=== PATIENT | male | born 1990 | race Two or more races ===

== ENCOUNTER 2019-12-16 15:55 | Inpatient (IN) | payer OTHER ==
[~2019-12-16] VITALS: Ht 172.7 cm; Wt 68.0 kg
[~2019-12-16 15:55] MED LIST: PIPERACILLIN SODIUM/TAZOBACTAM 3.375 G in IV DEXTROSE 5% 50 ML IV SCH
[2019-12-16] MEDS ORDERED: IV NORMAL SALINE 1000 ML BAG IV ONE (18:15)
[2019-12-16] MEDS ORDERED: ONDANSETRON 4 MG/2 ML VIAL IV ONE ×2 (18:15→21:45)
[2019-12-16] MEDS ORDERED: FAMOTIDINE. 20 MG/2 ML VIAL IV ONE ×2 (18:15→18:23)
[2019-12-16] MEDS ORDERED: ACET-73 PO (18:17)
[2019-12-16] MEDS ORDERED: ONDA8TAB6 PO (18:17)
[2019-12-16] MEDS ORDERED: DIVA500T2 PO (18:17)
[2019-12-16] MEDS ORDERED: DICY20TA11 PO (18:17)
[2019-12-16] MEDS ORDERED: AZIT250T13 PO (18:17)
[2019-12-16] MEDS ORDERED: ONDANSETRON 4 MG/2 ML VIAL ONE ×2 (18:22→21:44)
[2019-12-16 18:29] LABS: BASOPHILS % (AUTO) 0.1 % (0.0-2.0); EOSINOPHILS % (AUTO) 0.1 % (0.0-7.0); HEMATOCRIT 52.3 % (36.7-47.1); HEMOGLOBIN 17.9 g/dL (12.5-16.3); LYMPHOCYTES # (AUTO) 1.2 K/uL (20.0-40.0); LYMPHOCYTES % (AUTO) 7.4 % (20.5-51.5); MEAN CORPUSCULAR HEMOGLOBIN 29.4 uug (23.8-33.4); MEAN CORPUSCULAR HGB CONC 34 g/dL (32.5-36.3); MEAN CORPUSCULAR VOLUME 85.8 fL (73.0-96.2); MONOCYTES # (AUTO) 1.1 K/uL (2.0-10.0); MONOCYTES % (AUTO) 6.2 % (0.0-11.0); NEUTROPHILS # (AUTO) 14.6 K/uL (1.8-8.9); NEUTROPHILS % (AUTO) 86.2 % (38.5-71.5); PLATELET COUNT (AUTO) 293 K/uL (152-348)
[2019-12-16 18:38] LABS: CREATININE 1.1 mg/dL (0.6-1.3); POTASSIUM 4.8 mmol/L (3.5-5.1)
[2019-12-16] MEDS ORDERED: MORPHINE SULFATE 4 MG/1 ML DISP.SYRIN IV ONE ×2 (18:45→20:15)
[2019-12-16 18:46] LABS: BILIRUBIN,DIRECT 0.1 mg/dL (0.0-0.2); BILIRUBIN,TOTAL 1.6 mg/dL (0.2-1.0); TOTAL PROTEIN, SERUM 7.9 g/dL (6.4-8.2)
[2019-12-16] MEDS ORDERED: MORPHINE SULFATE 4 MG/1 ML DISP.SYRIN ONE ×2 (18:54→20:13)
--- NOTE | 2019-12-16 18:59 | NUR ---
still for CT scan & urine specimen, endorsed to 7pm nurse, decreased nausea expressed
[2019-12-16] MEDS ORDERED: IV NORMAL SALINE 250 ML IV ONE (19:01)
[2019-12-16] MEDS ORDERED: IOHEXOL 300MG/ML 100 ML INFUS..BTL ONE (19:01)
[2019-12-16] MEDS ORDERED: SWABABLE VALVE TRANSFER SET EA MC ONE (19:01)
--- NOTE | 2019-12-16 19:18 | NUR ---
CONSENT FOR CT OBTAINED FROM PATIENT.
--- NOTE | 2019-12-16 19:46 | NUR ---
patient returned from ct scan
--- NOTE | 2019-12-16 20:45 | NUR ---
PANEL CALL PLACED TO [facility].
--- NOTE | 2019-12-16 21:18 | NUR ---
SURGERY PROJECT DIRECTOR DR. PISANO SPEAKING WITH DR. BARRAGAN
[2019-12-16] MEDS ORDERED: IV LACTATED RINGERS SOLUTION 1,000 ML IV ONE (21:20)
[2019-12-16] MEDS ORDERED: PIPERACILLIN/TAZOBACTAM/D5W 50 ML IV ONE (21:24)
[2019-12-16] MEDS ORDERED: PIPERACILLIN SODIUM/TAZOBACTAM 3.375 G in IV DEXTROSE 5% 50 ML IV ONE (21:30)
--- NOTE | 2019-12-16 21:55 | NUR ---
Pt. admitted to m/s , under care of Ayush Anderson LAY OUT FORMER [employer] completed.
--- NOTE | 2019-12-16 21:55 | NUR ---
LR infusion started, floor nurse to complete.
[2019-12-16] MEDS ORDERED: DICYCLOMINE HCL 20 MG TABLET PO SCH (22:00)
[2019-12-16] MEDS ORDERED: MAGNESIUM HYDROXIDE 30 ML LIQUID UDC PO PRN (22:00)
[2019-12-16] MEDS ORDERED: HYDROCODONE/APAP 5-325MG TABLET PO PRN (22:00)
[2019-12-16] MEDS ORDERED: ONDANSETRON 4 MG/2 ML VIAL IV PRN (22:00)
[2019-12-16] MEDS ORDERED: Z GUARD REMEDY PASTE 57 GM TUBE TOP PRN (22:00)
--- NOTE | 2019-12-16 22:10 | NUR ---
ADMITTED PATIENT IN TELE FLOOR/COVID UNIT UNDER THE CARE OF HARIS MALIK NP. PATIENT ALERT ORIENTED, NO SOB NO CHEST PAIN, WITH EPISODE OF VOMITING WITH YELLOW CLEAR FLUID IN SMALL AMOUNT. PATIENT ON DROPLET PRECAUTION DUE TO COVID 19 POSITIVE PER RECORDS. PATIENT KEPT COMFORTABLE, CALL LIGHT WITHIN REACH. CONT TO MONITOR.
[2019-12-16 22:24] VITALS: BP 110/62
[2019-12-16] MEDS: IV NS 1000 ML 1,000 ML IV PRN (22:30)
[2019-12-16] MEDS: ZOLPIDEM 5 MG TABLET PO PRN (22:38)
--- NOTE | 2019-12-16 23:00 | NUR ---
PATIENT HAS EPISODE OF VOMITING WITH CLEAR LIQUID FLUIDS IN APPROX 200CC. CONT TO MONITOR.
[2019-12-17] VITALS: BP 115/54
[2019-12-17] MEDS ORDERED: PIPERACILLIN SODIUM/TAZOBACTAM 3.375 G in IV DEXTROSE 5% 50 ML IV SCH (03:30)
[2019-12-17 04:00] VITALS: BP_SYST 105; BP_SYST 125; BP_DIAS 72
--- NOTE | 2019-12-17 06:36 | NUR ---
ALERT ORIENTED, NO SOB NO CHEST PAIN. PATIENT ON TELE MONITOR SINUS RHYTHM AND SINUS TACHY. PATIENT HAS NO FURTHER EPISODE OF NAUSEA OR VOMITING. PATIENT REMAINS NPO, NO COMPLAIN OF PAIN AT THIS TIME.
--- NOTE | 2019-12-17 08:00 | NUR ---
Received Patient in bed, awake alert and verbally responsive. No signs of distress noted. On Room Air saturating 98%. No complain of Pain or discomfort at this time. Abdomen soft and non distended. Kept clean and comfortable. Will continue to monitor.
[2019-12-17] MEDS: PIPERACILLIN/TAZOBACTAM/D5W 3.375 G in IV DEXTROSE 5% 100 ML IV SCH ×2 (08:17→13:35)
[2019-12-17] MEDS: DIVALPROEX 500 MG TABLET.DR PO SCH ×2 (09:10→16:57)
[2019-12-17 10:23] LABS: BASOPHILS % (AUTO) 0.1 % (0.0-2.0); EOSINOPHILS % (AUTO) 0.3 % (0.0-7.0); HEMATOCRIT 40.7 % (36.7-47.1); HEMOGLOBIN 13.9 g/dL (12.5-16.3); LYMPHOCYTES # (AUTO) 1.4 K/uL (20.0-40.0); LYMPHOCYTES % (AUTO) 28.8 % (20.5-51.5); MEAN CORPUSCULAR HEMOGLOBIN 29.2 uug (23.8-33.4); MEAN CORPUSCULAR HGB CONC 34 g/dL (32.5-36.3); MEAN CORPUSCULAR VOLUME 85.5 fL (73.0-96.2); MONOCYTES # (AUTO) 0.5 K/uL (2.0-10.0); MONOCYTES % (AUTO) 10.1 % (0.0-11.0); NEUTROPHILS % (AUTO) 60.7 % (38.5-71.5); PLATELET COUNT (AUTO) 195 K/uL (152-348); RED BLOOD CELL COUNT(AUTO) 4.76 MIL/uL (4.06-5.63); WHITE BLOOD COUNT (AUTO) 4.9 K/uL (3.6-10.2)
[2019-12-17 11:20] LABS: THYROID STIMULATING HORMONE 0.118 mIU/mL (0.358-3.740)
[2019-12-17 11:27] LABS: BILIRUBIN,DIRECT 0.1 mg/dL (0.0-0.2); BILIRUBIN,TOTAL 0.7 mg/dL (0.2-1.0); MAGNESIUM 1.9 mg/dL (1.8-2.4); PHOSPHOROUS 3.6 mg/dL (2.5-4.9); POTASSIUM 4.1 mmol/L (3.5-5.1); TOTAL PROTEIN, SERUM 6.1 g/dL (6.4-8.2)
[2019-12-17 11:40] VITALS: BP 106/62
[2019-12-17] MEDS: MORPHINE SULFATE 2 MG/1 ML DISP.SYRIN IV PRN ×3 (12:27→19:00)
--- NOTE | 2019-12-17 14:44 | NUR ---
Received request for SS consultation. Will follow-up with this patient.
[2019-12-17 16:00] VITALS: BP 93/50
[2019-12-17] MEDS: IV NS 1000 ML 1,000 ML IV PRN (17:34)
--- NOTE | 2019-12-17 18:13 | NUR ---
Seen by Bhargavi MOREL with Order to Start Clear liquid Diet.
--- NOTE | 2019-12-17 18:14 | NUR ---
Patient is awake, alert and verbally responsive. No signs of distress noted. No Cough noted. No complain of Sore Throat. Morphine 2mg give for Abd and generalized Body pain with help. Kept clean and comfortable. Will endorse to oncoming Nurse.
[2019-12-17 20:18] VITALS: BP 101/56
[2019-12-17] MEDS ORDERED: METRONIDAZOLE 500 MG/NS 100ML 200 ML IV ONE (20:43)
[2019-12-17] MEDS ORDERED: levoFLOXacin 500 MG/D5W 100 ML ONE (20:44)
[2019-12-17] MEDS ORDERED: levoFLOXacin 500 MG/D5W 500 MG in PREMIXED 1 EACH IV SCH (21:00)
[2019-12-17] MEDS: ZOLPIDEM 5 MG TABLET PO PRN ×2 (21:13→21:32)
[2019-12-17] MEDS: ACETAMINOPHEN 325 MG TABLET PO PRN ×2 (21:13→21:23)
[2019-12-17] MEDS: METRONIDAZOLE 500 MG/NS 100ML 500 MG in PREMIXED 1 EACH IV SCH (22:59)
[2019-12-18] MEDS: MORPHINE SULFATE 2 MG/1 ML DISP.SYRIN IV PRN ×2 (00:02→03:38)
--- NOTE | 2019-12-18 04:10 | NUR ---
patient resting. AAOX3. no s/s of acute distress. v/s stable. covid positive results reported to Ayush Cr NP. denies SOB. morphine administered for pain management of abdominal area througout the night. NSR on tele monitor. PIV intact and patent. all medications administered as well as ABX with no ASE. safety precautions provided. all needs met and attended to. will continue to monitor and assess patient until morning nurse arrive to render care. Addendum: 12/18/19 at 0430 by YOMAIRA ALEGRIA RN tylenol and ambien dropped on floor. wasted. and readministered
[2019-12-18 04:16] VITALS: BP 117/68
[2019-12-18] MEDS: METRONIDAZOLE 500 MG/NS 100ML 500 MG in PREMIXED 1 EACH IV SCH ×2 (06:00→13:18)
--- NOTE | 2019-12-18 08:00 | NUR ---
Patient is awake, alert and verbally responsive. No signs of distress noted. Afebrile. No complain of Pain or discomfort. No nausea/vomiting. No complain of Abdominal pain/discomfort. All needs attended and met. Will continue to monitor.
[2019-12-18] MEDS: DIVALPROEX 500 MG TABLET.DR PO SCH ×2 (08:21→16:31)
[2019-12-18 08:22] LABS: HEPATITIS A AB, IgM Negative (Negative)
[2019-12-18 09:18] LABS: BASOPHILS % (AUTO) 0.3 % (0.0-2.0); EOSINOPHILS % (AUTO) 0.4 % (0.0-7.0); HEMATOCRIT 40.7 % (36.7-47.1); HEMOGLOBIN 14.1 g/dL (12.5-16.3); LYMPHOCYTES # (AUTO) 1.6 K/uL (20.0-40.0); LYMPHOCYTES % (AUTO) 34.4 % (20.5-51.5); MEAN CORPUSCULAR HEMOGLOBIN 29.6 uug (23.8-33.4); MEAN CORPUSCULAR HGB CONC 35 g/dL (32.5-36.3); MEAN CORPUSCULAR VOLUME 85.8 fL (73.0-96.2); MONOCYTES # (AUTO) 0.3 K/uL (2.0-10.0); MONOCYTES % (AUTO) 5.5 % (0.0-11.0); NEUTROPHILS # (AUTO) 2.8 K/uL (1.8-8.9); NEUTROPHILS % (AUTO) 59.4 % (38.5-71.5); PLATELET COUNT (AUTO) 184 K/uL (152-348); RED BLOOD CELL COUNT(AUTO) 4.75 MIL/uL (4.06-5.63); WHITE BLOOD COUNT (AUTO) 4.7 K/uL (3.6-10.2)
[2019-12-18 09:27] LABS: POTASSIUM 3.9 mmol/L (3.5-5.1)
--- NOTE | 2019-12-18 10:06 | NUR ---
10:00am: RHINA called patient's nurse Tammy, and asked to do a Zoom video call with the patient. Tammy informed this SW that patient was sleeping, and that maybe it can be done 30 minutes later. RHINA agreed. RHINA to attempt again later this morning.
[2019-12-18] MEDS ORDERED: ENOXAPARIN SODIUM 40 MG/0.4 ML DISP.SYRIN SQ SCH (10:33)
--- NOTE | 2019-12-18 11:03 | NUR ---
Rn Rehab Consultation Due to COVID-19 and droplet precautions, psychosocial assessment completed with the patient via ZOOM. 10:30am: SW met with this patient through Zoom video call. Patient was in bed in his assigned hospital room, awake, receptive to speaking with this SW. Patient is a 28 year old male. Patient is alert, oriented x 4. Patient is homeless, independent with his ADL's and IADL's. Per patient's medical records, patient came to the ED on 12/15 because he was experiencing nausea, vomiting, and diarrhea. Patient states she was at [facility] about 1 1/2 weeks ago, and tested positive for COVID-19. Patient states that he was placed at the [facility], where he has a room still available to him until 12/25. Patient states that when he tests negative, he is on the waitlist for [employer]. Patient states that he was living with his aunt and uncle up until August, but that when the pandemic began his aunt and uncle asked him to leave. Patient reports history of substance abuse, last use about 1 1/2 weeks ago. Patient did not disclose his choice of substances. SW explored patient's need for community resources. Patient has [employer] insurance, but does not receive any financial support from the [facility]. Patient stated that he plans to apply for GR, and this SW encouraged the patient to do so online. Patient expressed agreement and stated that he would do so by using his cellular phone. SW offered to provide the patient with a homeless resource packet, and explained some of the community resources that patient would be able to find in this packet. Patient agreed. RHINA stated that SW will instruct the patient's nurse to provide this resource packet to the patient, and patient expressed agreement. SW asked the patient if the patient had any additional questions or concerns at this time, and patient stated that he did not, and thanked this SW for her time. RHINA then instructed patient's nurse, Tammy, to provide patient with the homeless resource packet, and to have the patient sign the Homeless Patient Waiver Form upon discharge. Tammy expressed agreement. The homeless resource packet includes: a list of year round shelters [facility] [address], ; [facility] [address] [facility], ; and [facility] [address] [facility], [phone], along with resources for places to go for food, showers, substance abuse treatment, mental health services, community medical clinics, and pharmacies. These include the following: the [facility] homeless directory which provides a list of places that individuals can go to throughout the week for hot meals, sack lunches, food pantries, and showers; a list of mental health clinics: [facility] [address] [place] [address], ; [facility] [address] [place] [address], ; [facility] [address] [place] [address], ; a list of medical clinics: [facility] [address] [facility] [address], [employer] [place], ; [facility] [address] [facility] [address] [facility], [address] [place] [address]; [facility] [address] [place] [address], ; and a list of substance abuse programs: [facility] Substance Abuse Self-helpline ; [facility] ; [facility] ; [facility] ; [facility] ; [facility] [phone]; [facility] [place] [phone]; a list of locations of pharmacies. No further SS interventions needed at this time, however SW will be available to the patient, as needed, and will work with the interdisciplinary team, as needed, to ensure a safe and proper discharge.
[2019-12-18 11:50] VITALS: BP 99/51
[2019-12-18] MEDS ORDERED: METR500T PO (15:04)
[2019-12-18] MEDS ORDERED: LEVO500T2 PO (15:04)
[2019-12-18 16:32] VITALS: BP 109/66
--- NOTE | 2019-12-18 17:52 | NUR ---
Patient is awake, alert and verbally responsive. No signs of distress noted. Afebrile. No complain of Pain or discomfort. Patient remains covid19 positive. Proper PPE strictly Observed. Patient with Order to Discharge order [facility]. Discharge instructions given to patient and verbalized Understanding. Homeless packet given. Patient will be provided and transportation to go back to [facility]. called transportation with ETA of 30 minutes. Will continue to monitor.
--- NOTE | 2019-12-18 18:50 | NUR ---
Patient in bed, awake , alert and verbally responsive. No signs of distress noted. afebrile. No complain of pain or discomfort. Patient with order to be discharge to [facility], discharge Instruction given and verbalized understanding. All belongings was sent and signed by patient. Removed IV site, screen printer and Wrist band. patient was picked up by [facility] via [place] in stable condition.
== END 2019-12-18 19:00 | disposition home or self-care (01) | DRG 720 ==
LOC: ER 16:00 → MEDSURG3 21:45 → TELE3 22:31
PROVIDERS: ADMIT Nurse Practitioner Acute Care; ATTEND Nurse Practitioner Acute Care
DX: A41.89 Other specified sepsis (principal); U07.1 COVID-19; R10.9 Unspecified abdominal pain; F31.9 Bipolar disorder, unspecified; Z59.0 Homelessness; E80.6 Other disorders of bilirubin metabolism; Z90.49 Acquired absence of other specified parts of digestive tract; Z76.5 Malingerer [conscious simulation]; F15.10 Other stimulant abuse, uncomplicated; J12.89 Other viral pneumonia
CPT/HCPCS: 36415; 71045; 83605; 83690; 83735; 84100; 84443; 85025; 86705; 86709; 86803; A4663; G0378; J1650; J1956; J2270; J2405; J2543; J3490; J7030; J7050; J7060; Q9967; U0003-CS